=== PATIENT | male | born 1950 | race Caucasian/White ===

== ENCOUNTER 2021-12-14 09:32 | Emergency (ER) | payer MEDICARE | END 2021-12-14 12:18 | disposition home or self-care (01) | LOC: FER 09:32 | DX: S00.03XA Contusion of scalp, initial encounter (principal); I10 Essential (primary) hypertension; W01.0XXA Fall on same level from slipping, tripping and stumbling without subsequent striking against object, initial encounter; Y92.009 Unspecified place in unspecified non-institutional (private) residence as the place of occurrence of the external cause; Z28.311 Partially vaccinated for COVID-19 | CPT/HCPCS: 70450; 72125; 73110 ==

== ENCOUNTER 2022-03-20 09:32 | Emergency (ER) | payer MEDICARE ==
[2022-03-20 09:51] LABS: BASOPHIL 0.8 % (0-2); EOSINOPHIL 8.8 % (0-7); HCT 42.9 % (42.0-52.0); HGB 14.5 g/dl (13.2-18.0); LYMPHOCYTE 30.9 % (15-48); MCH 32.6 pg (25.0-31.0); MCHC 33.8 g/dL (32.0-36.0); MCV 96.4 fL (78.0-100.0); MONOCYTE 12.2 % (0-12); MPV 9.5 fL (6.0-9.5); NRBC 0; PLT 257 K/uL (150-400); RBC 4.45 M/uL (4.70-6.00); RDW 11.9 % (11.5-14.0); WBC 7.1 K/uL (4.0-10.5)
[2022-03-20 10:02] LABS: INR 1.06 (0.9-1.2); PROTHROMBIN TIME 13.5 SECONDS (11.9-13.9)
[2022-03-20 10:31] LABS: ALBUMIN 3.6 g/dL (3.4-5.0); BILIRUBIN - TOTAL 0.5 mg/dL (0.2-1.0); BUN/CREAT RATIO (CALC) 21.1 RATIO; CREATININE 0.9 mg/dL (0.67-1.17); GLOBULIN (CALCULATION) 3.9 g/dL; POTASSIUM 4.3 mmol/L (3.5-5.1); TOTAL PROTEIN 7.5 g/dL (6.4-8.2)
[2022-03-20 11:12] LABS: CORONAVIRUS 2019 SARS-COV-2 NEGATIVE (NEGATIVE); INFLUENZA A NAA NEGATIVE (NEGATIVE)
== END 2022-03-20 14:26 | disposition home or self-care (01) ==
LOC: FER 09:32
PROVIDERS: Internal Medicine
DX: R07.89 Other chest pain (principal); R20.2 Paresthesia of skin; I10 Essential (primary) hypertension; F17.220 Nicotine dependence, chewing tobacco, uncomplicated; Z20.822 Contact with and (suspected) exposure to COVID-19; Z88.6 Allergy status to analgesic agent
CPT/HCPCS: 36415; 71045; 71275; 80053; 83880; 84484; 85025; 85379; 85610; 85730; 93005; Q9967; U0002